=== PATIENT | female | born 1980 | race African-American/Black ===

== ENCOUNTER 2016-06-20 21:29 | Emergency (ER) | payer OTHER ==
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
[~2016-06-20 21:29] MED LIST: FLAGYL PO; LORTAB 5/500 TA1 TA1 PO; NO MEDICATIONS; VIBRAMYCIN100 M1 DOB
== END 2016-06-20 22:35 | disposition home or self-care (01) ==
LOC: CFTX 21:29
DX: S09.90XA Unspecified injury of head, initial encounter (principal); S39.92XA Unspecified injury of lower back, initial encounter; I10 Essential (primary) hypertension; E11.9 Type 2 diabetes mellitus without complications; F17.210 Nicotine dependence, cigarettes, uncomplicated; Z88.5 Allergy status to narcotic agent; Z88.6 Allergy status to analgesic agent; Z88.8 Allergy status to other drugs, medicaments and biological substances; Z79.899 Other long term (current) drug therapy; Y08.89XA Assault by other specified means, initial encounter; Y92.410 Unspecified street and highway as the place of occurrence of the external cause
CPT/HCPCS: 70450; 72100; 73030; 84703; 99284